=== PATIENT | female | born 1975 | race Caucasian/White ===

== ENCOUNTER → 2017-10-15 | Outpatient (CLI) | payer OTHER | LOC: FIMAGING 07:41 | PROVIDERS: ATTEND Obstetrics & Gynecology | DX: O09.512 Supervision of elderly primigravida, second trimester (principal); Z3A.19 19 weeks gestation of pregnancy ==

== ENCOUNTER 2018-03-03 01:06 | Inpatient (IN) | payer OTHER ==
[2018-03-03] MEDS ORDERED: OXYTOCIN 20 UNIT in LR 1,000 ML IV PRN (02:29)
[2018-03-03] MEDS ORDERED: MISOPROSTOL 200 MCG TAB PO PRN (02:29)
[2018-03-03] MEDS ORDERED: EPSOM SALT 454 GM TP PRN (02:29)
[2018-03-03] MEDS ORDERED: OLIVE OIL 118 ML BTL MISC PRN (02:29)
[2018-03-03] MEDS ORDERED: LR 1,000 ML IV PRN (02:29)
[2018-03-03] MEDS ORDERED: AMMONIA AROMATIC 1 EACH AMP IH PRN (02:29)
[2018-03-03] MEDS ORDERED: TERBUTALINE SULFATE 1 MG/ML VIAL IV PRN (02:29)
[2018-03-03] MEDS ORDERED: IBUPROFEN 600 MG TAB PO PRN (02:29)
[2018-03-03] MEDS ORDERED: hydrOXYzine HCL 50 MG TAB PO ONE (03:11)
[2018-03-03] MEDS: MISOPROSTOL 100 MCG TAB PO SCH ×2 (09:01→13:56)
[2018-03-03 09:28] LABS: PLATELET COUNT 146 10^3/uL (150-400)
[2018-03-03] MEDS ORDERED: PHENYLEPHRINE HCL 100 MCG/ML SYR ONE (15:54)
[2018-03-03] MEDS ORDERED: BUPIVACAINE 0.25% 30 ML SDV ONE (15:54)
--- NOTE | 2018-03-03 16:00 | PREANESOB ---
Obstetric Pre-Anesthesia Info - General Info Proposed Procedure: nakul : 1 Para: 0 POWER: 03/09/18 Gestational Age: 39 week(s) and 1 day(s) - Labor Status Amniotic Fluid Color: Clear Labor Epidural: Proposed Anesthesia Allergies/Adverse Reactions: Allergy/AdvReac Type Severity Reaction Status Date / Time No Known Allergies Allergy Unverified 03/03/18 01:42 Visit Medications: Generic Name Dose Route Start Last Admin Trade Name Freq PRN Reason Stop Dose Admin Ammonia (Aromatic Spirit) 1 each 03/03/18 02:29 Ammonia Aromatic IH 03/13/18 02:28 ONCE PRN Fainting Lactated Ringer's 1,000 mls @ 0 mls/hr 03/03/18 02:29 Lr IV 03/04/18 02:28 PRN PRN SEE PROTOCOL CONDITIONS Protocol Per Protocol Oxytocin 20 unit/ Lactated 1,002 mls @ 150 mls/hr 03/03/18 02:29 Ringer's IV PRN PRN Post- bleeding Ibuprofen 600 mg 03/03/18 02:29 Motrin PO 08/30/18 02:28 Q6HRS PRN post , inflammation Magnesium Sulfate 454 gm 03/03/18 02:29 Epsom Salt TP 08/30/18 02:28 Q1H PRN perineal discomfort Misoprostol 800 - 1,000 mcg 03/03/18 02:29 Cytotec PO 08/30/18 02:28 ONCE PRN Vaginal Atony/Bleeding Misoprostol 100 mcg 03/03/18 07:45 03/03/18 13:56 Cytotec PO 08/30/18 07:44 100 mcg Q4H JESSI Administration Alsen Oil 118 ml 03/03/18 02:29 Sweet Oil MISC 08/30/18 02:28 ONCE PRN perineal massage Terbutaline Sulfate 0.25 mg 03/03/18 02:29 Brethine IV 08/30/18 02:28 ONCE PRN Tachysystole Discontinued Medications Generic Name Dose Route Start Last Admin Trade Name Freq PRN Reason Stop Dose Admin Bupivacaine HCl Confirm 03/03/18 15:54 Sensorcaine 0.25% Sdv Administered 03/03/18 15:55 Dose 30 ml .ROUTE .STK-MED ONE Hydroxyzine HCl 50 mg 03/03/18 03:11 03/03/18 03:20 Hydroxyzine Hcl PO 03/03/18 03:12 50 mg ONCE ONE Administration Phenylephrine HCl Confirm 03/03/18 15:54 Neosynephrine Administered 03/03/18 15:55 Dose 1,000 mcg .ROUTE .STK-MED ONE - Anesthesia History Response to Local Anesthetics: Normal Anesthesia & Operative History: Prob w/Prior Anesthesia - Social History Substance Use/Abuse: Denies - Vital Signs Latest Vital Signs (Nursing): SEE nursing Height/Weight (Nursing): Height 167.64 cm Weight 68.039 kg - Focused Exam Neck exam: FROM Mallampati Score: Class 2 Mouth exam: normal dental/mouth exam Pulmonary: no respiratory distress Cardiovascular: regular rate and rhythym Labs: 03/03/18 08:38 Patient ABO/Rh O POSITIVE 03/03/18 08:38 - Plan Anesthetic Plan: NAKUL Consent Signed and on Chart: Yes Patient/Guardian Understands and Agrees to Plan: Yes
--- NOTE | 2018-03-03 16:10 | OBPROG ---
Labor Progress Note Assessment/Plan: Assessment: 43 y/o @ 39 1/7 wks with PROM Plan: Pt is s/p Cytotec x 2, and riky regularly On exam she is noted to be 4-5cm/100/-2 by RN Pt is requesting an epidural at this time FHTs - Cat I Tracing Will AROM after comfortable 03/03/18 16:07 Subjective/Intrapartum Course: 03/03/18 16:08 Pt is uncomfortable with ctx's and requesting an epidural. Objective: 03/03/18 08:38 Patient ABO/Rh O POSITIVE 03/03/18 08:38 - SVE Dilation (cm): 4 Effacement (%): 100 Station: -2 Membranes: SROM Amniotic Fluid Color: Clear - Contraction Pattern Assessment Current Contraction Pattern: Regular (q3-4 min) - FHR Assessment Valles FHR (bpm): 140 FHR Pattern Variability: Moderate FHR Category: 1 - AP Antepartum Course: 03/03/18 16:09 IUP at 39 1/7 wks with PROM; AMA-reassuring NIPT; GBS cx negative; Rubella non- immune Oxytocin Orders Assessment - Pre-Induction/Augmentation Assessment Gestational Age: 39 week(s) and 1 day(s) ICD10 Worksheet Patient Problems: Problems Problem Status Onset AMA (advanced maternal age) primigravida 35+ Acute PROM (premature rupture of membranes) Acute - ICD10 Problem Qualifiers (1) AMA (advanced maternal age) primigravida 35+ (2) PROM (premature rupture of membranes)
[2018-03-03] MEDS ORDERED: LR 500 ML IV SCH (16:30)
[2018-03-03] MEDS ORDERED: NALOXONE HCL 0.4 MG/ML INJ IVP PRN (16:30)
[2018-03-03] MEDS ORDERED: PHENYLEPHRINE HCL 100 MCG/ML SYR IVP PRN (16:30)
[2018-03-03] MEDS ORDERED: fentaNYL 2MCG/ML/BUP 0.1% RTU 100 ML EP SCH (16:30)
[2018-03-03] MEDS ORDERED: ONDANSETRON 4 MG/2 ML VIAL IVP PRN (16:30)
--- NOTE | 2018-03-03 16:32 | POSTANESTH ---
Post Anesthetic Evaluation Cardiovascular Status: Normal, Stable, Similar to Pre-Op Cond Respiratory Status: Normal, Stable, Similar to Pre-op Cond. Level of Consciousness/Mental Status: Can Participate in Eval, Alert and Oriented Pain Control: Adequate, Prn Tx Ordered Nausea/Vomiting Control: Adequate, Prn Tx Ordered Complications Possibly Related to Anesthesia: None Noted
--- NOTE | 2018-03-03 16:59 | GHP ---
[f rep st] HISTORY AND PHYSICAL DATE OF ADMISSION: 03/03/2018 ADMITTING DIAGNOSES: 1. Intrauterine at 39 weeks and 1 day. 2. Premature rupture of membranes. 3. Advanced maternal age. HISTORY OF PRESENT ILLNESS: Patient is a 43-year-old, 1, para 0, at 39 weeks and 1 day with an estimated due date 03/09/2018 by last menstrual period 06/01/2017, and confirmed by first trimester ultrasound at 9 weeks. The patient presents to Labor and Delivery with complaints of leakage of fluid. Clear fluid was noted, no odor around midnight. She states there are no contractions. Good movement. Denies any bleeding or spotting. Patient does have good care at [facility], and presented at 9 weeks. The is complicated by advanced maternal age. All genetic testing was negative. The patient did have a level 2 ultrasound with MFM, and normal anatomy was noted with an estimated weight 30th percentile, anterior placenta. Patient did receive Tdap. Followup growth ultrasound, in the 3rd trimester, revealed estimated weight 45th percentile with normal fluid. Growth ultrasound about 2 weeks ago, showed an estimated weight in 31st percentile, YESSENIA normal at 15, and cephalic. testing has been reassuring. GBS culture is negative. PAST OB HISTORY: This is her first . [employer] HISTORY: Age of menarche 12. Cycles are every 26 days for 3 days. Last menstrual period 06/01/2017. Positive test early in July 2017. The patient denies history of abnormal Pap smears or any exposure to sexually transmitted diseases. She does have a history of control use and discontinued them about 2 years ago. MEDICATIONS: Include vitamins and Claritin prn. ALLERGIES: No known drug allergies. PAST MEDICAL HISTORY: Childhood asthma, now just allergies. PAST SURGICAL HISTORY: She had a left leg ankle fracture secondary to fall, had surgery at age 23. PAST FAMILY HISTORY: Maternal grandmother, history of DVT. A brother with lupus. Maternal grandmother, lung cancer. SOCIAL HISTORY: Patient is . She is self-employed and lives with her . She denies any alcohol, tobacco, or illicit drug use. REVIEW OF SYSTEMS: 10-point review of systems negative. Pertinent positives noted in HPI. LABS: Blood type O positive, antibody negative. RPR nonreactive. Rubella non-immune. Hepatitis B surface antigen negative. HIV negative. Standard panel negative 08/13/2017. Pap test negative. Gonorrhea, and chlamydia cultures negative. Single AFP negative, 10/01/2017. Innatal screen negative 08/13/2017. H and H 12.1, and 35.2. One-hour Glucola 52. GBS culture is negative. PHYSICAL EXAMINATION: VITAL SIGNS: On admission, stable. Patient is afebrile. GENERAL: Well-nourished, well-developed female, alert and oriented x3. No apparent distress. CARDIOVASCULAR: Regular rate and rhythm. LUNGS: Clear to auscultation bilaterally. ABDOMEN: Gravid, soft, nontender. PELVIC: She is found to be about a fingertip, 50% effaced, -3 station, posterior; grossly ruptured, positive AmniSure. EXTREMITIES: Normal to inspection without calf tenderness or edema. HEART TONES: Category 1 tracing, heart rate 140s, positive accelerations, no decelerations, moderate variability. TOCO: Some uterine irritability noted, but no contractions. ASSESSMENT: The patient is a 43-year-old, 1, para 0, at 39 weeks, who presents with premature rupture of membranes. 1. Admit to Labor and Delivery. We discussed cervical ripening with oral Cytotec. The patient did want to get some sleep, have breakfast, and then start Cytotec. 2. Will proceed with oral Cytotec 100 mcg every 4 hours x4 doses prn. 3. GBS culture is negative. No prophylactic antibiotics are needed. 4. After cervical ripening, will see if Guzman balloon can be placed, or if advanced dilatation, will proceed with Pitocin per protocol. 5. Patient desires an epidural. /[id number]/MODL MTDD
[2018-03-03] MEDS ORDERED: fentaNYL 200 MCG, BUPIVACAINE 0.5% 20 ML in NS 100 ML EP SCH (17:00)
--- NOTE | 2018-03-03 17:17 | PDMN ---
Medical Necessity Medical necessity: Patient meets inpatient criteria per CNM/physician notes and likely MCG [id number] Vaginal Delivery.
[2018-03-03] MEDS ORDERED: LR 500 ML IV PRN (19:12)
[2018-03-03] MEDS ORDERED: OXYTOCIN 30 UNIT in NS 500 ML IV SCH (19:15)
--- NOTE | 2018-03-03 19:52 | OBPROG ---
Labor Progress Note Assessment/Plan: Assessment: 43 y/o @ 39 1/7 wks with PROM Plan: Pt is s/p epidural, and comfortable s/p Cytotec x 2 with ctx's that have now spaced put On exam, pt noted to be ant lip and 0-+1 station Will start Pitocin per protocol FHTs - Cat I tracing Will have pt labor down Anticipate 03/03/18 19:48 Subjective/Intrapartum Course: 03/03/18 16:08 Pt is uncomfortable with ctx's and requesting an epidural. 03/03/18 19:52 Pt is comfortable, s/p epidural. Objective: 03/03/18 08:38 Patient ABO/Rh O POSITIVE 03/03/18 08:38 - SVE Dilation (cm): 9 (Ant lip) Effacement (%): 100 Station: 0, +1 Membranes: SROM Amniotic Fluid Color: Clear - Contraction Pattern Assessment Current Contraction Pattern: Regular (q 5-7 min - ctx's have spaced out) - FHR Assessment Valles FHR (bpm): 140 FHR Pattern Variability: Moderate FHR Category: 2 (intermittent late decels noted) - AP Antepartum Course: 03/03/18 16:09 IUP at 39 1/7 wks with PROM; AMA-reassuring NIPT; GBS cx negative; Rubella non- immune Oxytocin Orders Assessment - Pre-Induction/Augmentation Assessment Gestational Age: 39 week(s) and 1 day(s) ICD10 Worksheet Patient Problems: Problems Problem Status Onset AMA (advanced maternal age) primigravida 35+ Acute PROM (premature rupture of membranes) Acute - ICD10 Problem Qualifiers (1) AMA (advanced maternal age) primigravida 35+ (2) PROM (premature rupture of membranes)
[2018-03-03] MEDS ORDERED: ACETAMINOPHEN 500 MG TAB PO PRN (19:55)
[2018-03-03] MEDS ORDERED: HYDROCORTISONE 0.5% CREAM TP PRN (23:16)
[2018-03-03] MEDS ORDERED: SIMETHICONE 80 MG TAB CHEW PO PRN (23:16)
[2018-03-03] MEDS ORDERED: HYDROCODONE/APAP 5/325 TAB PO PRN (23:16)
--- NOTE | 2018-03-03 23:24 | OBDEL ---
Info Type: Vaginal Presentation at Delivery: Vertex L&D Analgesia/Anesthesia Type: Epidural GBS+: No Intrapartum Medications: Generic Name Dose Route Start Last Admin Trade Name Freq PRN Reason Stop Dose Admin Acetaminophen 1,000 mg 03/03/18 19:55 03/03/18 20:02 Tylenol PO 08/30/18 19:54 1,000 mg Q6HRS PRN Administration Pain, Mild/Fever, Can Take PO Oxytocin 30 unit/ Sodium 503 mls @ 0 mls/hr 03/03/18 19:15 03/03/18 19:45 Chloride IV 08/30/18 19:14 503 mls CONT JESSI Administration Protocol Per Protocol Misoprostol 100 mcg 03/03/18 07:45 03/03/18 13:56 Cytotec PO 08/30/18 07:44 100 mcg Q4H JESSI Administration Discontinued Medications Generic Name Dose Route Start Last Admin Trade Name Freq PRN Reason Stop Dose Admin Hydroxyzine HCl 50 mg 03/03/18 03:11 03/03/18 03:20 Hydroxyzine Hcl PO 03/03/18 03:12 50 mg ONCE ONE Administration - Hospital Course Intrapartum: 03/03/18 16:08 Pt is uncomfortable with ctx's and requesting an epidural. 03/03/18 19:52 Pt is comfortable, s/p epidural. Indications for Delivery: SROM (PROM) Vaginal Delivery - Delivery Provider Delivery Physician/CNM: Crystal Rosario - Labor and Delivery Onset of Contractions Date: 03/03/18 Onset of Contractions Time: 10:00 Onset of Contractions Type: Induced Rupture of Membranes Date: 03/03/18 Rupture of Membranes Time: 00:00 Rupture of Membranes Type: Spontaneous Amniotic Fluid Color: Clear Dilation Complete Date: 03/03/18 Dilation Complete Time: 21:58 Placenta Delivery Date: 03/03/18 Placenta Delivery Time: 23:05 Total Hours of Labor: 13 Laceration: Other (Specify) (perineum intact; none) Vaginal Sponge Count Correct: Yes Vaginal Needle Count Correct: Yes Vaginal Sweep Performed: Yes EBL: 350 cc Delivery Events: None - Medications Labor Augmentation/Induction Methods Used: Pitocin, Misoprostol Labor Augmentation/Induction Indication: Other (Specify) (PROM; unfavorable cervix) [place] Data POWER: 03/09/18 Gestational Age: 39 week(s) and 1 day(s) Valles Delivery Date: 03/03/18 Delivery Time: 22:59 Sex of Infant: Male Score (1 Min): 8 Score (5 Min): 9 ICD10 Worksheet Patient Problems: Problems Problem Status Onset AMA (advanced maternal age) primigravida 35+ Acute PROM (premature rupture of membranes) Acute (spontaneous vaginal delivery) Acute - ICD10 Problem Qualifiers (1) AMA (advanced maternal age) primigravida 35+ (2) PROM (premature rupture of membranes) (3) (spontaneous vaginal delivery)
[2018-03-04] MEDS: MISOPROSTOL 100 MCG TAB PO SCH ×5 (03:07→17:27)
[2018-03-04] MEDS: DOCUSATE SODIUM 100 MG CAP PO PRN ×2 (09:03→21:48)
[2018-03-04] MEDS: IBUPROFEN 600 MG TAB PO PRN ×3 (09:03→21:48)
--- NOTE | 2018-03-04 11:49 | OBPP ---
Progress Note Assessment/Plan: Assessment: PPD 1 s/p Plan: routine care 03/04/18 11:48 Subjective/ Course: 03/04/18 11:48 Pt doing well. amb without probs and urinating fine. bld is moderate. baby is working on latching. no nausea - minimal cramps. Objective: 03/03/18 08:38 Patient ABO/Rh O POSITIVE 03/03/18 08:38 Temp Pulse Resp BP Pulse Ox 37.1 C 73 16 103/65 94 03/04/18 04:42 03/04/18 04:42 03/04/18 04:42 03/04/18 04:42 03/04/18 04:42 Uterine Position/Fundal Height: Umbilicus -1 Uterine Tone: Firm Physical Exam - Physical Exam Abdomen: non-tender, soft Extremities: non-tender, pedal edema (mild) Skin: normal color, warm/dry Neuro/Psych: alert, normal mood/affect
--- NOTE | 2018-03-04 17:16 | POSTANESTH ---
Post Anesthetic Evaluation Cardiovascular Status: Normal, Stable, Similar to Pre-Op Cond Respiratory Status: Normal, Stable, Similar to Pre-op Cond. Level of Consciousness/Mental Status: Can Participate in Eval, Alert and Oriented Pain Control: Adequate, Prn Tx Ordered Nausea/Vomiting Control: Adequate, Prn Tx Ordered Complications Possibly Related to Anesthesia: None Noted Notes: PPD 1, s/p . Pt rates pain control with epidural as excellent. Block has completely resolved. She is able to easily ambulate. Denies TELLEZ/N/V/pruritis. BAck site c/d/i, no e/e/e. Plan- Further pain control per OB. Epidural resolved, no apparent ill effects.
[2018-03-04 21:55] VITALS: O2SAT 96
[2018-03-05] MEDS: IBUPROFEN 600 MG TAB PO PRN ×3 (02:50→17:13)
[2018-03-05] MEDS: DOCUSATE SODIUM 100 MG CAP PO PRN (09:49)
--- NOTE | 2018-03-05 14:20 | OBPP ---
Progress Note Assessment/Plan: Assessment: 43 y/o PPD #2 s/p doing well. Plan: D/c home to [place] today. Follow-up @ [facility] 4 and 6 weeks. 03/05/18 14:21 Subjective/ Course: 03/04/18 11:48 Pt doing well. amb without probs and urinating fine. bld is moderate. baby is working on latching. no nausea - minimal cramps. 03/05/18 14:16 Pt is doing well. Min pain, cramping and lochia. Breast feeding is difficult and she is having nipple issues. She is going to d/c to [place] today and stay until tomorrow to work with around feeding. Objective: 03/03/18 08:38 Patient ABO/Rh O POSITIVE 03/03/18 08:38 Temp Pulse Resp BP Pulse Ox 35.9 C L 66 18 127/85 H 96 03/04/18 21:53 03/04/18 21:53 03/04/18 21:53 03/04/18 21:53 03/04/18 21:53 Uterine Position/Fundal Height: Umbilicus -2 Uterine Tone: Firm Physical Exam - Physical Exam General Appearance: WD/WN, alert, no apparent distress Neck: non-tender, full range of motion, supple Respiratory: chest non-tender, lungs clear, normal breath sounds Cardiac/Chest: regular rate, rhythm Abdomen: normal bowel sounds Extremities: swelling (no), Tonny's sign (neg)
--- NOTE | 2018-03-05 14:23 | OBGCSDC ---
General Delivery Information - General Info : 1 Para: 1 Abortions: 0 Type: Vaginal L&D Analgesia/Anesthesia Type: Epidural Admission Date: 03/03/18 Labs: Patient ABO/Rh O POSITIVE 03/03/18 08:38 Hct 38.6 % (38.0-47.0) 03/03/18 08:38 - Hospital Course Antepartum: 03/03/18 16:09 IUP at 39 1/7 wks with PROM; AMA-reassuring NIPT; GBS cx negative; Rubella non- immune Intrapartum: 03/03/18 16:08 Pt is uncomfortable with ctx's and requesting an epidural. 03/03/18 19:52 Pt is comfortable, s/p epidural. : 03/04/18 11:48 Pt doing well. amb without probs and urinating fine. bld is moderate. baby is working on latching. no nausea - minimal cramps. 03/05/18 14:16 Pt is doing well. Min pain, cramping and lochia. Breast feeding is difficult and she is having nipple issues. She is going to [place] and stay until tomorrow to work with around feeding. Vaginal - Delivery Provider Delivery Physician/CNM: Crystal Rosario - Diagnosis Labor: Induced Rupture of Membranes Type: Spontaneous Amniotic Fluid Color: Clear Laceration: Other (Specify) (perineum intact; none) Delivery Events: None - Delivery EBL: 350 cc [place] Data POWER: 03/09/18 Gestational Age: 39 week(s) and 3 day(s) Valles Delivery Date: 03/03/18 Delivery Time: 22:59 Sex of : Male [place] Weight (gm): 2694 g Score (1 Min): 8 Score (5 Min): 9 Discharge Information - Discharge Information Prescriptions: Hydrocodone/APAP 5/325 [[place] 5/325 (*)] 1 - 2 tab PO Q4HRS PRN #20 tab PRN Reason: Pain, Moderate Ibuprofen [Motrin (*)] 600 mg PO Q6HRS PRN #30 tab PRN Reason: Pain, Inflammatory Condition: Good Instruction/Follow Up: Four Weeks, Six Weeks
[2018-03-05 14:25] VITALS: BP 101/66; PULSE 72; RESP 16; TEMP 97.5
== END 2018-03-05 19:00 | disposition home or self-care (01) | DRG 775 ==
LOC: FLD 01:06 → FOB 03-04 02:06
PROVIDERS: ADMIT Obstetrics & Gynecology; ATTEND Obstetrics & Gynecology
PROC: 10E0XZZ Delivery of Products of Conception, External Approach (ICD-10-PCS; principal; 2018-03-03)
PROC: 3E0P7GC Introduction of Other Therapeutic Substance into Female Reproductive, Via Natural or Artificial Opening (ICD-10-PCS; principal; 2018-03-03)
PROC: 3E033VJ Introduction of Other Hormone into Peripheral Vein, Percutaneous Approach (ICD-10-PCS; principal; 2018-03-03)
DX: O42.02 Full-term premature rupture of membranes, onset of labor within 24 hours of rupture (principal); Z3A.39 39 weeks gestation of pregnancy; Z37.0 Single live birth
CPT/HCPCS: J2370; J2590; J3105